=== PATIENT | female | born 1985 | race Two or more races ===

== ENCOUNTER 2023-06-19 09:05 | Observation (INO) | payer MEDICAID ==
[~2023-06-19] VITALS: Ht 167.6 cm; Wt 81.6 kg
[2023-06-19] MEDS ORDERED: BETAMETHASONE ACET (30mg/5ml) 5ml Vial 6mg/ml IM ONE (10:30)
[2023-06-19] MEDS ORDERED: LACTATED RINGER'S 2,000 ML IV ONE (10:30)
[2023-06-19] MEDS ORDERED: PREN-96 PO (10:32)
[2023-06-19] MEDS ORDERED: BETAMETHASONE ACET (30mg/5ml) 5ml Vial 6mg/ml ONE (10:54)
[2023-06-19] MEDS ORDERED: NIFEdipine 10 MG CAP PO ONE (12:00)
== END 2023-06-19 12:13 | disposition home or self-care (01) ==
LOC: LDRP 09:05 → UNDOADMOB 09:05 → LDRP 09:09
PROVIDERS: ADMIT Obstetrics & Gynecology; ATTEND Obstetrics & Gynecology
DX: O60.03 Preterm labor without delivery, third trimester (principal); O62.9 Abnormality of forces of labor, unspecified; Z3A.34 34 weeks gestation of pregnancy
CPT/HCPCS: 59025; 76817; 76818; 81002; 94760; 96360; 96361; 96372; G0378; J0702

== ENCOUNTER 2023-06-20 09:20 | Observation (INO) | payer MEDICAID ==
[~2023-06-20] VITALS: Ht 167.6 cm; Wt 68.5 kg
[~2023-06-20 09:20] MED LIST: PREN-96 PO
[2023-06-20] MEDS ORDERED: BETAMETHASONE ACET (30mg/5ml) 5ml Vial 6mg/ml IM ONE (10:45)
== END 2023-06-20 11:31 | disposition home or self-care (01) ==
LOC: UNDOADMOB 10:14 → LDRP 10:14 → UNDODISOB 11:31
PROVIDERS: ADMIT Obstetrics & Gynecology; ATTEND Obstetrics & Gynecology
DX: O60.03 Preterm labor without delivery, third trimester (principal); O62.9 Abnormality of forces of labor, unspecified; Z3A.34 34 weeks gestation of pregnancy
CPT/HCPCS: 96372; G0378

== ENCOUNTER → 2023-10-30 | Outpatient (CLI) | payer MEDICAID ==
[2023-10-30 08:49] LABS: % Iron Saturation 14.2 % (15-50)
[2023-10-30 08:53] LABS: Alanine Aminotransferase 54 U/L (7-40); Albumin 4.5 g/dL (3.2-4.8); Alkaline Phosphatase 53 U/L (46-116); Anion Gap 6 (5-15); Aspartate Aminotransferase 21 U/L (13-40); BUN/Creatinine Ratio 12.5 (10.0-20.0); Blood Urea Nitrogen 8 mg/dL (9-23); Calcium 9.3 mg/dL (8.5-10.1); Carbon Dioxide 25 mmol/L (20-30); Chloride 109 mmol/L (98-107); Glucose 93 mg/dL (74-106); LDL Cholesterol 109 mg/dL (< 100); Potassium 3.8 mmol/L (3.5-5.1); Sodium 140 mmol/L (136-145); Triglycerides 74 mg/dL (< 150)
[2023-10-30 08:54] LABS: Bilirubin, Total 0.5 mg/dL (0.2-1.0); Cholesterol 161 mg/dL (< 200); HDL Cholesterol 49 mg/dL (40-59); Total Protein 6.7 g/dL (5.7-8.2)
[2023-10-30 09:09] LABS: Folate (Folic Acid) > 24.00 ng/mL (>5.38)
== END | disposition home or self-care (01) ==
LOC: LAB 08:06
PROVIDERS: ATTEND Internal Medicine
DX: Z00.01 Encounter for general adult medical examination with abnormal findings (principal)
CPT/HCPCS: 36415; 80053; 80061; 82533; 82607; 82746; 83036; 83540; 83550; 84443

== ENCOUNTER → 2024-06-17 | Outpatient (CLI) | payer MEDICAID ==
[2024-06-17 11:30] LABS: Basophils # (auto) 0 10 ^3/uL (0-0.2); Basophils % (auto) 0.6 % (0.0-2.0); Eosinophils # (auto) 0.1 10 ^3/uL (0-0.8); Eosinophils % (auto) 1.1 % (0.0-7.0); Hematocrit 41.5 % (36.0-46.0); Hemoglobin 14.7 g/dL (12.2-16.2); Lymphocytes # (auto) 1.7 10 ^3/uL (0.4-5.4); Lymphocytes % (auto) 27.9 % (10.0-50.0); Mean Corpuscular Hemoglobin 31.1 pg (28.0-32.0); Mean Corpuscular Hgb Conc. 35.5 g/dL (32.0-36.0); Mean Corpuscular Volume 87.8 fL (80.0-100.0); Monocytes # (auto) 0.3 10 ^3/uL (0-1.3); Monocytes % (auto) 5.5 % (0.0-12.0); Neutrophils % (auto) 64.9 % (37.0-80.0); Platelet Count (auto) 329 10^3/uL (140-450); Red Blood Cells 4.73 10^6/uL (4.0-5.20); Red Cell Distribution Width 13.3 % (11.8-14.3); White Blood Cell 6.2 10^3/uL (4.4-10.8)
[2024-06-17 11:56] LABS: Alanine Aminotransferase 24 U/L (7-40); Albumin 4.7 g/dL (3.2-4.8); Alkaline Phosphatase 68 U/L (46-116); Anion Gap 7 (5-15); Aspartate Aminotransferase 11 U/L (13-40); BUN/Creatinine Ratio 15.6 (10.0-20.0); Bilirubin, Total 0.8 mg/dL (0.2-1.0); Blood Urea Nitrogen 10 mg/dL (9-23); Calcium 9.5 mg/dL (8.7-10.4); Carbon Dioxide 24 mmol/L (20-31); Chloride 108 mmol/L (98-107); Glucose 102 mg/dL (74-106); Potassium 3.6 mmol/L (3.5-5.1); Sodium 139 mmol/L (136-145); Total Protein 7.4 g/dL (5.7-8.2)
== END | disposition home or self-care (01) ==
LOC: LAB 10:45
PROVIDERS: ATTEND Internal Medicine
DX: H72.92 Unspecified perforation of tympanic membrane, left ear (principal); E66.3 Overweight; E61.1 Iron deficiency
CPT/HCPCS: 36415; 80053; 85025